=== PATIENT | female | born 1985 | race Caucasian/White ===

== ENCOUNTER 2021-11-04 16:46 | Emergency (ER) | payer OTHER ==
[2021-11-04 17:10] VITALS: BP 160/88; PULSE 114; RESP 16; TEMP 98.2
--- NOTE | 2021-11-04 17:20 | ED ---
Back Pain HPI - General Chief Complaint: Back Pain/Injury Stated Complaint: Lower Back Pain Time Seen by Provider: 11/04/21 17:15 Source: patient Limitations: no limitations - History of Present Illness Initial Comments: Patient is a 35-year-old female presenting to the emergency room with her spouse with complaints of worsening lower back pain with radiculopathy and l ower extremity weakness. She has been following outpatient with Dr. Tomlinson who had completed lumbar x-rays and had plans for an MRI soon however the MRI was rescheduled due to machine availability. She states that the pain began approximately 5 weeks ago. She was placed on oral steroids with some mild relief and then for worsening of symptoms shortly after completion of the course. She states recently she has had an increase in numbness and tingling to her left foot and left medial calf region along with pain in bilateral saddle regions. She states that she has had radiculopathy down both legs primarily to the outer aspects with an increase to the groin aspect. She denies any inability to ambulate, bowel or bladder incontinence. She denies any numbness or weakness in her groin. She denies any other significant past medical history. - Related Data Home Medications Medication Instructions Recorded Confirmed Celecoxib [CeleBREX] 200 mg PO BID 11/04/21 11/04/21 Orphenadrine Citrate [Orphenadrine 100 mg PO BID PRN 11/04/21 11/04/21 Citrate ER] Phentermine HCl 37.5 mg PO DAILY 11/04/21 11/04/21 Previous Rx's Medication Instructions Recorded predniSONE [Deltasone] 20 mg PO DIRECTED #16 tab 11/04/21 Allergies Allergy/AdvReac Type Severity Reaction Status Date / Time No Known Allergies Allergy Verified 11/04/21 17:10 Review of Systems ROS Statement: Those systems with pertinent positive or pertinent negative responses have been documented in the HPI. ROS Other: All systems not noted in ROS Statement are negative. 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 Absent: scleral icterus, conjunctival injection, periorbital swelling ENT exam: Present: normal exam, mucous membranes moist Right Neurovascular tendon exam: Present: no vascular compromise Gait: observed and limited by pain Back exam: Present: vertebral tenderness (L4-L5 region). Absent: muscle spasm, paraspinal tenderness Expanded Motor strength exam: RLE: 5 (Slight weakness noted leg extension), LLE: 5 (Slight weakness noted to hip extension) DTR: Patellar (R): 2+, Patellar (L): 1+ Psychiatric exam: Present: normal affect, normal mood Skin exam: Present: warm, dry, intact, normal color. Absent: rash Course Vital Signs 11/04/21 17:06 Temperature 98.2 F Pulse Rate 114 H Respiratory 16 Rate Blood Pressure 160/88 O2 Sat by Pulse 100 Oximetry - Reevaluation(s) Reevaluation #1: Pain remains stable. Patient agreeable for discharge with follow-up with both her primary care provider and Dr. Tomlinson. Will place on steroid burst taper. 11/04/21 21:10 Time: 21:10 Medical Decision Making - Medical Decision Making Due to worsening of numbness and tingling and radiculopathy will check computed tomography scan of lumbar spine. Prior to computed tomography scan will check BMP and urine hCG. Pain medication offered and declined. Computed tomography scan results reviewed with patient and spouse. Symptoms stable. Patient agreeable for discharge. We'll follow up with her orthopedist. Already has MRI of lumbar spine scheduled. - Lab Data Result diagrams: 11/04/21 18:18 Lab Results 11/04/21 11/04/21 Range/Units 18:18 18:20 Sodium 136 L (137-145) mmol/L Potassium 4.3 (3.5-5.1) mmol/L Chloride 106 (98-107) mmol/L Carbon Dioxide 24 (22-30) mmol/L Anion Gap 6 mmol/L BUN 17 (7-17) mg/dL Creatinine 0.70 (0.52-1.04) mg/dL Est GFR (CKD-EPI)AfAm >90 (>60 ml/min/1.73 sqM) Est GFR (CKD-EPI)NonAf >90 (>60 ml/min/1.73 sqM) Glucose 108 H (74-99) mg/dL Calcium 8.7 (8.4-10.2) mg/dL Urine HCG, Qual Not Detected (Not Detectd) - Radiology Data Radiology results: report reviewed CT lumbar spine with contrast disc L4-L5: Large central disc protrusion with L4- L5 with severe spinal canal stenosis. There are suspected inferior and superior migration of fragments up to 11 mm superiorly and 90 minute malaise inferiorly impression. 1. Large central disc protrusion at L4/L5 with severe spinal canal stenosis. There is inferior and superior migration of disc material. Soft tissue and stenosis could be further evaluated with MRI of the lumbar spine. 2. No evidence of fracture of the lumbar spine.. Disposition Clinical Impression: Lumbar radiculopathy Disposition: HOME SELF-CARE Instructions (If sedation given, give patient instructions): Acute Low Back Pain (ED) Additional Instructions: Please return to the Emergency Department if symptoms worsen or any other concerns. Return parameters including caudate equine symptoms discussed. Prescriptions: predniSONE [Deltasone] 20 mg PO DIRECTED #16 tab Is patient prescribed a controlled substance at d/c from ED?: No Referrals: Roney Koch MD [Primary Care Provider] - 1-2 days Time of Disposition: 21:17
[2021-11-04 18:30] LABS: African American GFR (CKD) >90 (>60 ml/min/1.73 sqM); Anion Gap 6 mmol/L; Blood Urea Nitrogen 17 mg/dL (7-17); Calcium 8.7 mg/dL (8.4-10.2); Carbon Dioxide 24 mmol/L (22-30); Chloride 106 mmol/L (98-107); Glucose 108 mg/dL (74-99); Non-African American GFR(CKD) >90 (>60 ml/min/1.73 sqM); Potassium 4.3 mmol/L (3.5-5.1); Sodium 136 mmol/L (137-145)
[2021-11-04] MEDS ORDERED: methylPREDNISolone SOD SUCCI 125 MG/2 ML VIAL IV STA (18:50)
--- NOTE | 2021-11-04 20:16 | CT ---
EXAMINATION TYPE: CT lumbar spine w con CT DLP: 1789.4 mGycm, Automated exposure control for dose reduction was used. DATE OF EXAM: 11/04/2021 7:18 PM COMPARISON: None. CLINICAL INDICATION:Female, 35 years old with history of pain; TECHNIQUE: Multiple axial images were obtained from the midportion of T11 through the sacroiliac lesa nts. Soft tissue and bone windows in coronal and sagittal planes were obtained and reviewed. FINDINGS: Alignment: There are 5 lumbar type vertebral bodies within normal alignment. Bone: No evidence of fracture is identified. Mild multilevel disc degeneration changes. Discs: T12-L1: No spinal canal or neural foraminal stenosis is identified. L1-L2: No spinal canal or neural foraminal stenosis is identified. L2-L3: No spinal canal or neural foraminal stenosis is identified. L3-L4: No spinal canal or neural foraminal stenosis is identified. L4-L5: Large central disc protrusion at L4-L5 with severe spinal canal stenosis. There are suspected inferior and superior migration of fragments up to 11 mm superiorly and 9 mm inferiorly. L5-S1: No spinal canal or neural foraminal stenosis is identified. Other: Previous lucency within the kidneys collecting system bilaterally could represent excreted con trast from outside institution versus nonobstructing calcifications. IMPRESSION: 1. Large central disc protrusion at L4-L5 with severe spinal canal stenosis. There is inferior and olmos perior migration of disc material. Soft tissues and stenosis could be further evaluated with MRI of t he lumbar spine. 2. No evidence of fracture of the lumbar spine.
== END 2021-11-04 21:37 | disposition home or self-care (01) ==
LOC: EC 16:46
DX: M54.16 Radiculopathy, lumbar region (principal)
CPT/HCPCS: 36415; 80048; 81025; 72132; 99284; 96374; J2930; Q9967